=== PATIENT | female | born 1980 | race African-American/Black ===

== ENCOUNTER 2021-03-26 08:00 | Inpatient (IN) | payer OTHER ==
[2021-03-26] MEDS ORDERED: DEXTROSE 5%-LACTATED RINGERS 1,000 ML IV SCH (08:30)
[2021-03-26 09:26] VITALS: BMI 35.3
[2021-03-26] MEDS: MISOPROSTOL 100 MCG TABLET PV SCH ×4 (10:45→23:42)
[2021-03-26 11:03] LABS: BASO % 0.4 % (0-2.0); EOS % 1.1 % (0-4.5); HEMOGLOBIN 10.4 GM/dL (10.7-15.3); LYMPH % 19.8 % (8-40); MCH 31.4 pg (25.7-33.7); MCHC 34.6 g/dl (32.0-36.0); MEAN CELL VOLUME 90.8 fl (80-96); MEAN PLT VOLUME 8.6 fl (7.5-11.1); MONO % 7.2 % (3.8-10.2); NEUT % 71.5 % (42.8-82.8); PLATELET COUNT 206 10^3/uL (134-434); RDW 14.6 % (11.6-15.6); WHITE BLOOD COUNT 9.4 K/mm3 (4.0-10.0)
[2021-03-26 11:08] LABS: INR 0.97 (0.83-1.09); PROTHROMBIN TIME (PATIENT) 11.9 SEC (9.7-13.0)
[2021-03-26 11:11] LABS: ACTIVATED PTT 26.7 SECONDS (25.2-36.5)
[2021-03-26 12:27] LABS: BLOOD UREA NITROGEN 9.8 mg/dL (7-18); CREATININE 0.5 mg/dL (0.55-1.3); GLUCOSE,RANDOM 80 mg/dL (74-106); SODIUM 137 mmol/L (136-145)
[2021-03-26 12:28] LABS: ALBUMIN 2.8 g/dl (3.4-5.0); ALK PHOS 101 U/L (45-117); BILIRUBIN,TOTAL 0.4 mg/dL (0.2-1); CALCIUM 8.9 mg/dL (8.5-10.1); CHLORIDE 108 mmol/L (98-107); CO2 24 mmol/L (21-32); SGOT/AST 13 U/L (15-37); SGPT/ALT 9 U/L (13-61); TOT PROT 6.5 g/dl (6.4-8.2)
[2021-03-26] MEDS ORDERED: OXYTOCIN 30 UNITS in 0.9% NS 30 UNIT/500 ML INFUS.BAG IVPB SCH (15:00)
[2021-03-26] MEDS ORDERED: PROMETHAZINE HCL 25 MG/1 ML VIAL ONE (21:19)
[2021-03-26] MEDS ORDERED: BUTORPHANOL TARTRATE 2 MG/ML VIAL ONE (21:19)
[2021-03-26] MEDS ORDERED: BUTORPHANOL TARTRATE 1 MG/ML VIAL IVPB ONE (21:25)
[2021-03-26] MEDS ORDERED: PROMETHAZINE HCL 25 MG/1 ML VIAL IVPB ONE (21:26)
[2021-03-26 22:08] LABS: SYPHILIS W/ RPR CONF NON-REACTIVE (NONREACTIVE)
[2021-03-26 23:05] LABS: HIV INTERPRETATION NEGATIVE (NEGATIVE)
[2021-03-27] MEDS ORDERED: FENTANYL/BUPIVACAINE/NS/PF - PCEA - 50 ML DISP.SYRIN EP ONE ×2 (02:25→07:51)
[2021-03-27] MEDS ORDERED: SODIUM CHLORIDE 1,000 ML IV STA (02:29)
[2021-03-27] MEDS ORDERED: BUPIVACAINE HCL/PF 0.25% (2.5MG/ML) 10 ML VIAL ONE (02:32)
[2021-03-27] MEDS ORDERED: NALOXONE HCL 0.4 MG/ML VIAL IVPUSH PRN (03:25)
[2021-03-27] MEDS ORDERED: FENTANYL/BUPIVACAINE/NS/PF - PCEA - 50 ML DISP.SYRIN EP SCH (03:30)
[2021-03-27] MEDS: MISOPROSTOL 100 MCG TABLET PV SCH ×4 (03:47→17:11)
[2021-03-27] MEDS ORDERED: ceFAZolin SODIUM 1 GM VIAL ONE (10:33)
[2021-03-27] MEDS ORDERED: OXYTOCIN 10 UNIT/ML 10ML MDV ONE (10:33)
[2021-03-27] MEDS ORDERED: ONDANSETRON 4 MG/2 ML VIAL ONE (10:33)
[2021-03-27] MEDS ORDERED: KETOROLAC TROMETHAMINE 30 MG/1 ML VIAL ONE (10:33)
[2021-03-27] MEDS ORDERED: CITRIC ACID/SODIUM CITRATE 30 ML UNIT-DOSE CUP PO ONE (11:59)
[2021-03-27] MEDS ORDERED: OXYTOCIN 20 UNITS in 0.9% NS 20 UNIT/1,000 ML INFUS.BAG IV SCH (12:00)
[2021-03-27] MEDS ORDERED: METHYLERGONOVINE MALEATE 0.2 MG/1 ML AMP IM PRN (12:00)
[2021-03-27] MEDS ORDERED: ONDANSETRON 4 MG/2 ML VIAL IVPUSH PRN (12:04)
[2021-03-27] MEDS ORDERED: ACETAMINOPHEN 1000 MG/100 ML VIAL (NON FORMULARY) IVPB ONE (12:05)
[2021-03-27 12:07] LABS: CORD BASE EXCESS -3.3 mmol/L (0-2); CORD HCO3 23.7 mmHg (20-29); CORD PCO2 49.8 mmHg (30-78); CORD pH 7.296 (7.14-7.44)
[2021-03-27 12:09] LABS: CORD BASE EXCESS -8.5 mmol/L (0-2); CORD HCO3 21.8 mmHg (20-29); CORD PCO2 65.7 mmHg (30-78); CORD pH 7.138 (7.14-7.44)
[2021-03-27] MEDS ORDERED: ACETAMINOPHEN INJECTION 100 ML IVPB ONE (12:33)
[2021-03-27] MEDS ORDERED: OXYTOCIN 20 UNITS in 0.9% NS 20 UNIT/1,000 ML INFUS.BAG IV ONE (12:33)
[2021-03-27] MEDS ORDERED: SIMETHICONE 80 MG TAB.CHEW (FP) PO PRN (17:24)
[2021-03-27] MEDS ORDERED: IBUPROFEN 600 MG TABLET (FP) PO PRN (17:24)
[2021-03-27] MEDS: IBUPROFEN 600 MG TABLET (FP) PO PRN (22:33)
[2021-03-27] MEDS: SIMETHICONE 80 MG TAB.CHEW (FP) PO PRN (22:33)
[2021-03-28] MEDS: ACETAMINOPHEN 325 MG TABLET (FP) PO PRN ×2 (00:22→04:42)
[2021-03-28] MEDS: SIMETHICONE 80 MG TAB.CHEW (FP) PO PRN ×4 (04:42→22:00)
[2021-03-28 07:56] LABS: BASO % 0.3 % (0-2.0); EOS % 1.2 % (0-4.5); HEMATOCRIT 25.8 % (32.4-45.2); HEMOGLOBIN 8.8 GM/dL (10.7-15.3); LYMPH % 10.4 % (8-40); MCHC 34.2 g/dl (32.0-36.0); MEAN CELL VOLUME 90.6 fl (80-96); MEAN PLT VOLUME 8.2 fl (7.5-11.1); MONO % 6.4 % (3.8-10.2); NEUT % 81.7 % (42.8-82.8); PLATELET COUNT 147 10^3/uL (134-434); RBC 2.85 M/mm3 (3.60-5.2); RDW 14.7 % (11.6-15.6)
[2021-03-28] MEDS: IBUPROFEN 600 MG TABLET (FP) PO PRN ×2 (09:52→13:22)
[2021-03-28] MEDS: BISACODYL 10 MG SUPP.RECT RC PRN (13:22)
[2021-03-28] MEDS ORDERED: ACETAMINOPHEN 1000 MG/100 ML VIAL (NON FORMULARY) IVPB PRN (15:15)
[2021-03-28] MEDS ORDERED: KETOROLAC TROMETHAMINE 30 MG/1 ML VIAL IVPUSH PRN (15:16)
[2021-03-28] MEDS: oxyCODONE HCL 5 MG TABLET PO PRN (22:01)
[2021-03-29] MEDS: oxyCODONE HCL 5 MG TABLET PO PRN (03:30)
[2021-03-29] MEDS: SIMETHICONE 80 MG TAB.CHEW (FP) PO PRN (03:30)
[2021-03-29] MEDS: IBUPROFEN 600 MG TABLET (FP) PO PRN (09:44)
[2021-03-29] MEDS: oxyCODONE HCL 5 MG TABLET PO SCH ×4 (11:49→21:51)
[2021-03-29] MEDS: IBUPROFEN 600 MG TABLET (FP) PO SCH ×3 (11:49→23:07)
[2021-03-29 12:41] LABS: BASO % 0.2 % (0-2.0); EOS % 0.7 % (0-4.5); HEMATOCRIT 24.8 % (32.4-45.2); HEMOGLOBIN 8.5 GM/dL (10.7-15.3); LYMPH % 9.8 % (8-40); MCH 30.8 pg (25.7-33.7); MCHC 34.2 g/dl (32.0-36.0); MEAN CELL VOLUME 90.2 fl (80-96); MEAN PLT VOLUME 7.9 fl (7.5-11.1); MONO % 6.2 % (3.8-10.2); NEUT % 83.1 % (42.8-82.8); PLATELET COUNT 206 10^3/uL (134-434); RBC 2.75 M/mm3 (3.60-5.2); RDW 14.7 % (11.6-15.6); WHITE BLOOD COUNT 16.1 K/mm3 (4.0-10.0)
[2021-03-29 13:02] LABS: CALCIUM 8.3 mg/dL (8.5-10.1)
[2021-03-29 13:03] LABS: ALBUMIN 2.1 g/dl (3.4-5.0); BLOOD UREA NITROGEN 6.8 mg/dL (7-18)
[2021-03-29 13:06] LABS: CREATININE 0.6 mg/dL (0.55-1.3)
[2021-03-29 13:07] LABS: BILIRUBIN,TOTAL 0.4 mg/dL (0.2-1)
[2021-03-29 13:08] LABS: TOT PROT 5.3 g/dl (6.4-8.2)
[2021-03-29 14:54] LABS: EPI CELLS 12 /uL (0-25.1); HYALINE CASTS 0 /uL (0-3.1); URINE APPEARANCE CLEAR; URINE BACTERIA 256 /uL (0-1359); URINE BILIRUBIN NEGATIVE (NEGATIVE); URINE COLOR YELLOW; URINE GLUCOSE (UA) NEGATIVE (NEGATIVE); URINE KETONE 1+ (NEGATIVE); URINE LEUK ESTERASE NEGATIVE (NEGATIVE); URINE NITRITE NEGATIVE (NEGATIVE); URINE PROTEIN NEGATIVE (NEGATIVE); URINE RBC 13 /uL (0-23.9); URINE WBC 10 /uL (0-25.8)
[2021-03-30] MEDS: oxyCODONE HCL 5 MG TABLET PO SCH ×2 (02:11→06:02)
[2021-03-30] MEDS: IBUPROFEN 600 MG TABLET (FP) PO SCH ×4 (06:02→23:36)
[2021-03-30] MEDS: ACETAMINOPHEN WITH CODEINE 300MG/30MG TABLET PO SCH ×4 (06:47→23:37)
[2021-03-30 07:06] LABS: BASO % 0.5 % (0-2.0); EOS % 2.8 % (0-4.5); HEMATOCRIT 23.9 % (32.4-45.2); HEMOGLOBIN 8.1 GM/dL (10.7-15.3); LYMPH % 15.8 % (8-40); MCH 30.6 pg (25.7-33.7); MEAN PLT VOLUME 7.6 fl (7.5-11.1); MONO % 5.7 % (3.8-10.2); NEUT % 75.2 % (42.8-82.8); PLATELET COUNT 189 10^3/uL (134-434); RBC 2.65 M/mm3 (3.60-5.2); RDW 14.5 % (11.6-15.6); WHITE BLOOD COUNT 11.8 K/mm3 (4.0-10.0)
[2021-03-30] MEDS: BISACODYL 10 MG SUPP.RECT RC PRN (12:26)
[2021-03-31] MEDS: ACETAMINOPHEN WITH CODEINE 300MG/30MG TABLET PO SCH ×2 (06:33→12:18)
[2021-03-31] MEDS: IBUPROFEN 600 MG TABLET (FP) PO SCH ×2 (06:33→12:19)
[2021-03-31 09:57] VITALS: BP 112/73; PULSE 87; TEMP 97.5
[2021-03-31] MEDS: BISACODYL 10 MG SUPP.RECT RC PRN (12:19)
== END 2021-03-31 16:45 | disposition home or self-care (01) | DRG 540 ==
LOC: JLDR 08:00 → J3W 03-27 13:38
PROVIDERS: ADMIT Obstetrics & Gynecology Maternal & Fetal Medicine; ATTEND Obstetrics & Gynecology Maternal & Fetal Medicine
PROC: 10D00Z1 Extraction of Products of Conception, Low, Open Approach (ICD-10-PCS; principal; 2021-03-27)
PROC: 0UB70ZZ Excision of Bilateral Fallopian Tubes, Open Approach (ICD-10-PCS; 2021-03-27)
DX: O62.1 Secondary uterine inertia (principal); O36.63X0 Maternal care for excessive fetal growth, third trimester, not applicable or unspecified; Z30.2 Encounter for sterilization; Z3A.38 38 weeks gestation of pregnancy; Z37.0 Single live birth
CPT/HCPCS: 36415; 36600; 71046-TC-FY; 80053; 81003; 82803; 85025; 85610; 85730; 86780; 86850; 86900; 86901; 87389; 88302-TC; 88307-TC; C9803; J0131; U0003; U0005